=== PATIENT | female | born 1965 | race Hispanic/Latino ===

== ENCOUNTER → 2023-06-27 | Emergency (ER) | payer SELFPAY ==
[~2023-06-27] MED LIST: ACETAMINOPHEN 500 MG TAB ONE; DIAZEPAM 5 MG TABLET ONE; KETOROLAC 30 MG/ML INJ ONE; LIDOCAINE 4% PATCH ONE
--- NOTE | 2023-06-27 11:26 | EDPHYS ---
Physician Documentation [facility] Name: Shannon Smith Age: 58 yrs Sex: Female : 1965 Arrival Date: 06/27/2023 Time: 10:14 Bed 13 Private MD: ED Physician Rajesh Bustos HPI: 06/27 10:40 This 58 yrs old Female presents to ER via Wheelchair with complaints of back ec2 and leg pain. 10:40 Patient arrives today for evaluation of back and leg pain. Patient complains of several ec2 weeks of symptoms. Reports that she has right low back pain radiating to the right leg. Patient reports pain with ambulation, pain with movement. Denies any falls or injuries or trauma. Denies any red flag symptoms. Has taken ibuprofen with minimal alleviation in symptoms.. Historical: - Allergies: 12:24 No Known Allergies; kc6 ROS: 10:40 Constitutional: as per hpi ec2 Exam: 10:40 Constitutional: GEN: NAD Head: atraumatic Eyes: EOMI Ears: External ears are ec2 normal. CV: regular rate LUNGS: no respiratory distress ABD: non-distended SKIN: no evidence of rashes MSK: no evidence of trauma, right lateral low back with TTP, no deformity, no crepitus, no evidence of trauma. Positive right lower extremity straight leg raise test. NEURO: moves all extremities equally Vital Signs: 10:22 BP 119 / 76; Pulse 86; Resp 16; Temp 98.8; Pulse Ox 100% on R/A; iw 12:24 BP 129 / 70; Pulse 78; Resp 16 S; Pulse Ox 100% on R/A; kc6 MDM: 10:22 Patient medically screened. rn 10:41 Data reviewed: nurses notes. Data reviewed: vital signs. ED course: Patient arrives ec2 today for evaluation of right low back pain and right leg pain. Examination remarkable for MSK findings as noted above. Will treat the patient symptoms and reassess the pain. Suspect sciatica versus musculoskeletal sprain, strain. Patient without red flag symptoms, doubt spinal cord pathology, accordingly will defer any advanced imaging like CT or MRI.. 11:25 ED course: On reassessment patient with improvement in mobility and pain. Will ec2 discharge home and have her follow-up with primary care doctor. Return precautions given.. Administered Medications: : Drug: Ketorolac IM 30 mg IM once Route: IM; Site: right deltoid; kc6 : Drug: Diazepam PO 5 mg PO once Route: PO; kc6 : Drug: Acetaminophen PO 1000 mg PO once Route: PO; kc6 : Drug: Lidoderm Topical Patch 5 % (700 mg/patch) 1 patches Topical once; leave on for 12 kc6 hours; cover most painful area; may cut into smaller pieces {Note: lower back.} Route: Topical; Site: affected area; Disposition Summary: 06/27/23 11:25 Discharge Ordered Notes: Location: Home ec2 Problem: an ongoing problem ec2 Symptoms: have improved ec2 Condition: Stable ec2 Diagnosis - Lumbago with sciatica, right side ec2 Followup: ec2 - With: Private Physician - When: - Reason: Re-evaluation by your physician Discharge Instructions: - Discharge Summary Sheet ec2 - Sciatica ec2 Forms: - Family Work Release kc6 - Medication Reconciliation Form ec2 - Thank You Letter ec2 - Antibiotic Education ec2 - Prescription Opioid Use ec2 - Patient Portal Instructions ec2 - Leadership Thank You Letter ec2 Prescriptions: - methocarbamol 500 mg Oral tablet - take 2 tablets ORAL route 4 times per day; 30 tablet; Refills: 0, Product ec2 Selection Permitted Signatures: Alejandro Spivey MD MD rn Campbell, Kaitlyn, RN RN kc6 Rajesh Bustos MD MD ec2
--- NOTE | 2023-06-27 11:26 | ER ---
Nurse's Notes [facility] Name: Shannon Smith Age: 58 yrs Sex: Female : 1965 Arrival Date: 06/27/2023 Time: 10:14 Bed 13 Private MD: Diagnosis: Lumbago with sciatica, right side Presentation: 06/27 10:21 Chief complaint: Patient's son or daughter states: pt c/o right leg pain, radiates from iw right low back and down the leg , has been hurting for a few weeks , cannot walk, no fall or injury noted. 10:21 Acuity: LIZA 3 iw 10:21 Method Of Arrival: Wheelchair iw 10:22 Coronavirus screen: At this time, the client does not indicate any symptoms associated iw with coronavirus-19. Ebola Screen: Patient negative for fever greater than or equal to 101.5 degrees Fahrenheit, and additional compatible Ebola Virus Disease symptoms Patient denies exposure to infectious person. Patient denies travel to an Ebola-affected area in the 21 days before illness onset. No symptoms or risks identified at this time. Initial Sepsis Screen: Does the patient meet any 2 criteria? No. Patient's initial sepsis screen is negative. Does the patient have a suspected source of infection? No. Patient's initial sepsis screen is negative. Risk Assessment: Do you want to hurt yourself or someone else? Patient reports no desire to harm self or others. Historical: - Allergies: 12:24 No Known Allergies; kc6 Screenin:29 [facility] ED Fall Risk Assessment (Adult) History of falling in the last 3 months, kc6 including since admission No falls in past 3 months (0 pts) Confusion or Disorientation No (0 pts) Intoxicated or Sedated No (0 pts) Impaired Gait No (0 pts) Mobility Assist Device Used No (0 pt) Altered Elimination No (0 pt) Score/Fall Risk Level 0 - 2 = Low Risk. Abuse screen: Denies threats or abuse. Denies injuries from another. Nutritional screening: No deficits noted. Tuberculosis screening: No symptoms or risk factors identified. Assessment: 10:29 General: Appears in no apparent distress. uncomfortable, well groomed, well developed, kc6 Behavior is calm, cooperative, appropriate for age. Pain: Complains of pain in back and right leg. Neuro: Level of Consciousness is awake, alert, obeys commands, Oriented to person, place, time, situation, Appropriate for age. Cardiovascular: Capillary refill < 3 seconds. Respiratory: Airway is patent Trachea midline Respiratory effort is even, unlabored, Respiratory pattern is regular, symmetrical. GI: No signs and/or symptoms were reported involving the gastrointestinal system. : No signs and/or symptoms were reported regarding the genitourinary system. EENT: No signs and/or symptoms were reported regarding the EENT system. Derm: No signs and/or symptoms reported regarding the dermatologic system. Skin is intact, is healthy with good turgor, Skin is pink, warm \T\ dry. Musculoskeletal: No signs and/or symptoms reported regarding the musculoskeletal system. Circulation, motion, and sensation intact. Capillary refill < 3 seconds, Range of motion: intact in all extremities. 11:29 Reassessment: Patient appears in no apparent distress at this time. No changes from kc6 previously documented assessment. Patient and/or family updated on plan of care and expected duration. Pain level reassessed. Patient is alert, oriented x 3, equal unlabored respirations, skin warm/dry/pink. Vital Signs: 10:22 BP 119 / 76; Pulse 86; Resp 16; Temp 98.8; Pulse Ox 100% on R/A; iw 12:24 BP 129 / 70; Pulse 78; Resp 16 S; Pulse Ox 100% on R/A; kc6 ED Course: 10:21 Patient arrived in ED. ra3 10:22 Alejandro Spivey MD is Attending Physician. rn 10:22 Triage completed. iw 10:23 Attending Physician role handed off by Alejandro Spivey MD rn 10:23 Rajesh Bustos MD is Attending Physician. rn 10:25 Marlin Chung, BRUNA is Primary Nurse. kc6 10:30 Patient maintains SpO2 saturation greater than 95% on room air. kc6 10:30 Patient has correct armband on for positive identification. Bed in low position. Call kc6 light in reach. Side rails up X2. Adult w/ patient. Client placed on continuous cardiac and pulse oximetry monitoring. NIBP monitoring applied. 12:24 No provider procedures requiring assistance completed. Patient did not have IV access kc6 during this emergency room visit. Administered Medications: 10:41 Drug: Ketorolac IM 30 mg IM once Route: IM; Site: right deltoid; kc6 10:41 Drug: Diazepam PO 5 mg PO once Route: PO; kc6 10:41 Drug: Acetaminophen PO 1000 mg PO once Route: PO; kc6 10:41 Drug: Lidoderm Topical Patch 5 % (700 mg/patch) 1 patches Topical once; leave on for 12 kc6 hours; cover most painful area; may cut into smaller pieces {Note: lower back.} Route: Topical; Site: affected area; Medication: 12:24 VIS not applicable for this client. kc6 Outcome: 11:25 Discharge ordered by . ec2 12:24 Discharged to home ambulatory, with friend, kc6 12:24 Condition: improved 12:24 Discharge instructions given to patient, Instructed on discharge instructions, follow up and referral plans. medication usage, Demonstrated understanding of instructions, follow-up care, medications, Prescriptions given X 1, 12:25 Patient left the ED. kc6 Signatures: Barbi Jones RN RN iw Alejandro Spivey MD MD rn Campbell, Kaitlyn, RN RN 6 Rajesh Bustos MD MD ec2 Vilma Keene ra3 Corrections: (The following items were deleted from the chart) 10:23 10:21 Chief complaint: Patient's son or daughter states: pt c/o right leg pain, iw radiates from right low back and down the leg , has been hurting for a few weeks , cannot walk iw
[2023-06-27 12:51] VITALS: BP 129/70; TEMP 98.8; O2SAT 100
== END ==
LOC: ER 10:14
DX: M54.41 Lumbago with sciatica, right side (principal)
CPT/HCPCS: J2001